=== PATIENT | female | born 1960 | race Caucasian/White ===

== ENCOUNTER → 2019-07-12 09:25 | Outpatient (BNVA) | payer OTHER, SELFPAY | PROVIDERS: Family Provider Electrodiagnostic Medicine; PCP Electrodiagnostic Medicine; Visit Provider Internal Medicine Rheumatology | DX: Z79.899 Other long term (current) drug therapy (principal); M19.90 Unspecified osteoarthritis, unspecified site; R76.8 Other specified abnormal immunological findings in serum | CPT/HCPCS: 36415; 80076; 82565; 85025; 85651; 86140; 86431; 86812 ==

== ENCOUNTER 2019-07-16 09:36 | Emergency (ER) | payer OTHER, SELFPAY ==
[2019-07-16 09:37] VITALS: BP 160/102; PULSE 84; RESP 18; TEMP 36.7; O2SAT 95; BMI 36.6
[2019-07-16 09:42] VITALS: BP 163/98; PULSE 82; RESP 17; O2SAT 98
--- NOTE | 2019-07-16 09:43 | ECG_ITS ---
Measurements Intervals Guys Rate: 70 P: 15 NC: 174 QRS: -10 QRSD: 89 T: 22 QT: 403 QTc: 435 SINUS RHYTHM POSSIBLE ANTERIOR MYOCARDIAL INFARCTION , PROBABLY OLD [30 ms Q WAVE IN V3/V4, OR R < 0.2 mV IN V4] No previous ECG available for comparison Electronically Signed On 07-16-2019 19:35:13 CDT by Lee Rogers M.D. [email or web address]
--- NOTE | 2019-07-16 09:43 | ED_ITS ---
HPI - Abdominal Pain General: Chief Complaint: Abdominal Pain Stated Complaint: RUQ PAIN Time Seen by Provider: 07/16/19 09:40 History of Present Illness: HPI narrative: 58-year-old female complaining of right upper quadrant abdominal pain. Pain is been coming and going for the last 2 weeks. She denies anything that seems to particularly worsen or relieve it she denies any nausea vomiting or diarrhea she denies any dysuria urgency or frequency denies fever cough sweats or chills. She is not any food that seem to trigger as well. She has not had any trauma to that area she has noticed that when she lays supine and improves and movement does seem to worsen just a little bit Associated Symptoms: Denies bloating, chills, coffee ground emesis, constipation, diarrhea, dysuria, fever(s), hematochezia, hematemesis, melena, nausea and vomiting Review of Systems Const: Denies: fever(s), chills, body aches, change in appetite, fatigue or malaise ENMT: Denies: throat pain, ear or mastoid pain, nasal discharge or nasal congestion Card: Denies: chest pain, edema, dyspnea on exertion or orthopnea Resp: Denies: dyspnea, productive cough or non-productive cough GI: Denies: abdominal pain, nausea, vomiting, hematemesis, coffee ground emesis, diarrhea, constipation, bloating, hematochezia or melena : Denies: flank pain, difficulty voiding, dysuria, urinary frequency or urinary urgency Skin/Breast: Denies: rash or pruritus PFS ED PFSH: Medical History Biceps tendon tear Hypertension Surgical History H/O dilation and curettage H/O hysterectomy for benign disease History of cholecystectomy Hx of total knee arthroplasty Social History Smoking and tobacco status: never smoked Physical Exam Const: COMMON NORMALS: no acute distress GENERAL APPEARANCE: cooperative and comfortable ORIENTATION/CONSCIOUSNESS: Yes awake, Yes oriented to person, Yes oriented to place and Yes oriented to time HENMT: COMMON NORMALS: normocephalic, atraumatic, hearing grossly normal bilaterally, external ears normal, EAC's normal, TM's normal bilaterally, Normal nasal mucous membranes and turbinates present, moist oral mucous membranes and oropharynx normal HEAD & SCALP: normocephalic and atraumatic NOSE: Normal nasal mucous membranes and turbinates present EXTERNAL EAR: Yes external ears normal EXTERNAL AUDITORY CANAL: EAC's normal TYMPANIC MEMBRANE: TM's normal bilaterally Eye: COMMON NORMALS: Equal, round and reactive pupils present, EOMs intact bilaterally, conjunctivae normal and no scleral icterus CONJUNCTIVA: Yes conjunctivae normal PUPIL: Yes Equal, round and reactive pupils present Neck/C-Spine: COMMON NORMALS: full ROM, no lymphadenopathy, supple and no JVD Lymph: LYMPHATIC: no lymphadenopathy noted and no lymphedema noted Resp: COMMON NORMALS: normal respiratory effort, No retractions, No use of accessory muscles and clear to auscultation bilaterally AUSCULTATION: clear to auscultation bilaterally Cardio: COMMON NORMALS: no JVD, regular rate, regular rhythm and No murmurs present (Cardio) RATE: regular rate RHYTHM: regular rhythm GI: COMMON NORMALS: Soft to palpation and No hepatosplenomegaly present AUSCULTATION: Yes normoactive bowel sounds PALPATION: Yes Soft to palpation, No Tenderness to palpation present (GI), No Guarding due to palpation present (GI) and Yes No hepatosplenomegaly present Extremity: COMMON NORMALS: normal to inspection, capillary refill normal, no clubbing, cyanosis or edema, no calf tenderness and no pedal edema Neuro: SENSORIUM/ORIENTATION: Yes oriented to person, Yes oriented to place and Yes oriented to time Skin: COMMON NORMALS: no rashes or lesions noted GENERAL SKIN EXAM: no rashes or lesions noted Course Vital Signs: Vital signs: Vital Signs Temperature 98.1 F 07/16/19 09:37 Pulse Rate 66 07/16/19 12:42 Respiratory Rate 18 07/16/19 12:42 Blood Pressure 146/76 07/16/19 12:42 Pulse Oximetry 96 07/16/19 12:42 MDM - Abdominal Pain MDM Narrative: Medical decision making narrative: Reviewed the findings with the patient we will have her use yira-gky-[id number] laxatives such as milk of magnesia or mag citrate for the relief of constipation. For the cystitis started on Cipro 500 twice daily we did give her some Rocephin here for his worsening or change symptoms return Lab Data: Labs: Lab Results 07/16/19 07/16/19 07/16/19 Range/Units 10:00 10:00 10:00 WBC 4.5 (4.0-10.0) 10^3/ uL RBC 5.25 (4.1-5.3) 10^6/u L Hgb 14.8 (11.5-15.3) g/dL Hct 45.9 (37.0-47.0) % MCV 87.4 (81-99) fL MCH 28.2 (28.0-34.0) pg MCHC 32.2 (30.0-36.0) g/dL RDW 12.8 (12.1-15.1) % Plt Count 309 (130-400) 10^3/c mm MPV 8.6 (7.4-10.4) fL Neut % (Auto) 54.8 % Lymph % (Auto) 33.6 % Pershing % (Auto) 9.1 % Eos % (Auto) 1.6 % Baso % (Auto) 0.7 % Neut # (Auto) 2.5 (1.8-7.7) 10^3/u L Lymph # (Auto) 1.5 (0.8-4.8) 10^3/u L Pershing # (Auto) 0.4 (0.2-0.9) 10^3/u L Eos # (Auto) 0.1 (0.0-0.8) 10^3/u L Baso # (Auto) 0.0 (0.0-0.1) 10^3/u L Nucleated RBC % (a uto) 0 % Nucleated RBCs # 0.0 /100WBC Sodium 138 (136-145) mmol/L Potassium 4.0 (3.5-5.1) mmol/L Chloride 98 (98-107) mmol/L Carbon Dioxide 27 (22-29) mmol/L Anion Gap 17.0 (5-19) BUN 13 (6-20) mg/dL Creatinine 0.7 (0.5-0.9) mg/dL GFR Calculation 85.9 L (90-130) mL/min Glucose 146 H (65-115) mg/dL Calculated Osmolal ity 285 (285-295) mOsm/k g Lactate 1.4 (0.5-2.2) mmol/L Calcium 10.0 (8.5-10.5) mg/dL Lipase 35 (13-60) U/L Urine Color (Yellow) Urine Appearance (CLEAR) Urine pH (5-7) Ur Specific Gravit y (1.005-1.030) Urine Protein (Negative) Urine Glucose (UA) (Normal) Urine Ketones (Negative) Urine Blood (Negative) Urine Nitrate (Negative) Urine Bilirubin (NEGATIVE) Urine Urobilinogen (Negative) mg/dL Ur Leukocyte Geovanna ase (Negative) Urine RBC (0-2) /hpf Urine WBC (0-5) /hpf Ur Squamous Epith Cells (0-5) Urine Bacteria (NONE) 07/16/19 Range/Units 10:30 WBC (4.0-10.0) 10^3/ uL RBC (4.1-5.3) 10^6/u L Hgb (11.5-15.3) g/dL Hct (37.0-47.0) % MCV (81-99) fL MCH (28.0-34.0) pg MCHC (30.0-36.0) g/dL RDW (12.1-15.1) % Plt Count (130-400) 10^3/c mm MPV (7.4-10.4) fL Neut % (Auto) % Lymph % (Auto) % Pershing % (Auto) % Eos % (Auto) % Baso % (Auto) % Neut # (Auto) (1.8-7.7) 10^3/u L Lymph # (Auto) (0.8-4.8) 10^3/u L Pershing # (Auto) (0.2-0.9) 10^3/u L Eos # (Auto) (0.0-0.8) 10^3/u L Baso # (Auto) (0.0-0.1) 10^3/u L Nucleated RBC % (a uto) % Nucleated RBCs # /100WBC Sodium (136-145) mmol/L Potassium (3.5-5.1) mmol/L Chloride (98-107) mmol/L Carbon Dioxide (22-29) mmol/L Anion Gap (5-19) BUN (6-20) mg/dL Creatinine (0.5-0.9) mg/dL GFR Calculation (90-130) mL/min Glucose (65-115) mg/dL Calculated Osmolal ity (285-295) mOsm/k g Lactate (0.5-2.2) mmol/L Calcium (8.5-10.5) mg/dL Lipase (13-60) U/L Urine Color Yellow (Yellow) Urine Appearance Cloudy (CLEAR) Urine pH 6.5 (5-7) Ur Specific Gravit y 1.010 (1.005-1.030) Urine Protein Neg (Negative) Urine Glucose (UA) Norm (Normal) Urine Ketones Negative (Negative) Urine Blood Trace H (Negative) Urine Nitrate Negative (Negative) Urine Bilirubin Neg (NEGATIVE) Urine Urobilinogen Norm (Negative) mg/dL Ur Leukocyte Geovanna ase 2+ H (Negative) Urine RBC 5-10 H (0-2) /hpf Urine WBC 40-55 H (0-5) /hpf Ur Squamous Epith Cells 0-4 H (0-5) Urine Bacteria 3+ H (NONE) Discharge Plan Discharge Patient Disposition: Home, Self-Care Clinical Impression: Cystitis, Constipation Condition: Stable Prescriptions: New Cipro 500 mg tablet 500 mg PO BID Qty: 7 RF: 0 No Action hydrocodone-acetaminophen 5-325 mg tablet 1 tab PO Q4H PRN (Reason: Pain) RF: 0 triamterene-hydrochlorothiazid 37.5-25 mg capsule 1 cap PO DAILY RF: 0 amitriptyline 25 mg tablet 25 mg PO BEDTIME PRN (Reason: Sleep) RF: 0 fluoxetine 20 mg capsule 20 mg PO DAILY RF: 0 Discharge Orders: Discharge Order (Routine); Ordered 07/16/19 Ordered By: Miguel A Temple Referrals: Ivan Callahan DO [Primary Care Provider] - Discharge Diet: Usual diet Discharge Activity: Increase activity as tolerated Discharge Date/Time: 07/16/19 12:40 Coding Level of Care Code ED Vendor Quality Supervisor for Chg Fwd Exam Comprehensive
--- NOTE | 2019-07-16 09:43 | CT_ITS ---
WS: [id number] CT ABDOMEN AND PELVIS WITH CONTRAST HISTORY: Abdominal pain for 2 weeks. Worse in the RIGHT lower quadrant. TECHNIQUE: Imaging performed of the abdomen and pelvis with IV contrast. Single phase imaging of the abdomen. Coronal and sagittal reformats are submitted. All CT scans at [facility] use at least one of these dose optimization techniques: automated exposure control; mA and/or kV adjustment per patient size (includes targeted exams where dose is matched to clinical indication); or iterativ e reconstruction. IV CONTRAST: Visipaque 320; 95 mL IV. Oral contrast: No DLP: 1604.97 mGy.cm COMPARISON: None available. Lower thorax: Benign granuloma LEFT lung base. Heart is normal size. Small hiatal hernia. Liver/biliary system: Diffuse low attenuation from hepatic steatosis. No bile duct dilatation. Normal appearance of the portal vein. Gallbladder: Prior cholecystectomy. Normal bile ducts. Pancreas: Normal. Spleen: Normal. Adrenal glands: Normal. Right kidney: Normal size RIGHT kidney. Cyst from the mid kidney, maximum diameter of 2.0 cm. Nonobst ructing calcification measuring 6 mm in the mid kidney. There is very slight dilatation of the RIGHT renal pelvis. Dilatation may be related to an extrarenal pelvis or minimal UP junction obstruction. T he ureter is normal size. No hydronephrosis. Left kidney: Cortical cyst lower pole measures 6 mm. No obstruction. Aorta: Mild atherosclerosis with no aneurysm. Lymphadenopathy: None. Free fluid: None. GI tract: Normal appendix. Mild diffuse constipation. There are numerous diverticula throughout the c olon. No acute inflammatory changes. Abdominal wall: Unremarkable abdominal wall. No hernia. Pelvis: Prior hysterectomy. Nondistended urinary bladder. No free fluid or adenopathy. Bones: Facet joint arthritis at L4-5 and L5-S1. Fusion across the disc of T11 and T12. CT/CT abdomen pelvis w con* [id number] IMPRESSION: 1. Prior cholecystectomy and hysterectomy. 2. Normal appendix. 3. Moderate hepatic steatosis. 4. No renal obstruction. 5. Constipation and diffuse diverticulosis without diverticulitis.
--- NOTE | 2019-07-16 09:44 | XRR_ITS ---
PROCEDURE INFORMATION: Exam: XR Chest, 1 View Exam date and time: 07/16/2019 9:55 AM Age: 58 years old Clinical indication: Cough and dyspnea and other: Ruq pain; Additional info: Dyspnea/cough, ruq pain TECHNIQUE: Imaging protocol: XR of the chest Views: 1 view. COMPARISON: No relevant prior studies available. FINDINGS: Lungs: No acute airspace disease. Pleural space: No pleural effusion. Heart/Mediastinum: Epicardial fat accentuates the cardiac silhouette. Bones/joints: Degenerative change. Left rotator cuff repair. XR/XR chest 1V portable [id number] IMPRESSION: No acute airspace or pleural disease.
[2019-07-16 10:07] LABS: Basophils % 0.7 %; Eosinophils # 0.1 10^3/uL (0.0-0.8); Eosinophils % 1.6 %; Hematocrit 45.9 % (37.0-47.0); Hemoglobin 14.8 g/dL (11.5-15.3); Lymphocytes # 1.5 10^3/uL (0.8-4.8); Lymphocytes % 33.6 %; Mean Corpuscular HGB Conc 32.2 g/dL (30.0-36.0); Mean Corpuscular Hemoglobin 28.2 pg (28.0-34.0); Mean Corpuscular Volume 87.4 fL (81-99); Mean Platelet Volume 8.6 fL (7.4-10.4); Monocytes # 0.4 10^3/uL (0.2-0.9); Monocytes % 9.1 %; Neutrophils # 2.5 10^3/uL (1.8-7.7); Neutrophils % 54.8 %; Nucleated Red Blood Cells % 0 %; Platelet Count 309 10^3/cmm (130-400); Red Blood Count 5.25 10^6/uL (4.1-5.3); Red Cell Distribution Width 12.8 % (12.1-15.1); White Blood Count 4.5 10^3/uL (4.0-10.0)
[2019-07-16] MEDS: ondansetron 2 mg/ML SDV 2 mL 4 MG IVP (10:11)
[2019-07-16] MEDS: diphenhydrAMINE 50 mg/mL SDV 1mL 25 MG IVP (10:12)
[2019-07-16] MEDS: hydrocortisone 100 mg/2 mL SDV IVP (10:14)
[2019-07-16] MEDS: sodium chloride 0.9% 1,000 ML 999 ML IV (10:17)
[2019-07-16] MEDS: iodixanol 320 mg/mL 100mL Btl IV (10:21)
[2019-07-16 10:26] LABS: Blood Urea Nitrogen 13 mg/dL (6-20); Carbon Dioxide 27 mmol/L (22-29); Chloride 98 mmol/L (98-107); Glomerular Filtration Rate 85.9 mL/min (90-130); Glucose 146 mg/dL (65-115); Lactate (Lactic Acid level) 1.4 mmol/L (0.5-2.2); Lipase 35 U/L (13-60); Osmolality Calculated 285 mOsm/kg (285-295); Sodium 138 mmol/L (136-145)
[2019-07-16 10:39] VITALS: BP 163/98; PULSE 74; RESP 17; O2SAT 97
[2019-07-16 10:55] LABS: Add Urine Microscopic? YES; Bilirubin Urine Neg (NEGATIVE); Blood Urine Trace (Negative); Glucose Urine UA Norm (Normal); Ketones Urine Negative (Negative); Leukocyte Esterase Urine 2+ (Negative); Nitrate Urine Negative (Negative); Protein Urine Neg (Negative); Urine Appearance Cloudy (CLEAR); Urine Color Yellow (Yellow); Urobilinogen Urine Norm (Negative); pH Urine 6.5 (5-7)
[2019-07-16 10:57] LABS: Add Urine Culture? Yes; Bacteria Urine 3+; Squamous Epithelial Cell Urine 0-4 (0-5); WBC Urine 40-55 /hpf (0-5)
[2019-07-16 11:00] VITALS: BP 132/84; PULSE 73; RESP 18; O2SAT 98
[2019-07-16] MEDS: cefTRIAXone 1,000 MG in sodium chloride 0.9% (plus) 50 ML 100 MG IV (12:04)
[2019-07-16 12:42] VITALS: BP 146/76; PULSE 66; RESP 18; O2SAT 96
== END 2019-07-16 12:40 | disposition home or self-care (01) ==
PROVIDERS: Emergency Provider Family Medicine; Family Provider Electrodiagnostic Medicine; PCP Electrodiagnostic Medicine
DX: N30.90 Cystitis, unspecified without hematuria (principal); K59.00 Constipation, unspecified; I10 Essential (primary) hypertension
CPT/HCPCS: 12345; 36415; 71045; 74177; 80048; 81001; 83605; 83690; 85025; 87040; 87077; 87086; 87186; 93005; 96360; 96365; 96375; 99283; 99284; J0696; J1200; J1720; J2405; J7030; Q9967

== ENCOUNTER → 2019-07-19 12:29 | Outpatient (BNVA) | payer OTHER, SELFPAY | PROVIDERS: Family Provider Electrodiagnostic Medicine; PCP Electrodiagnostic Medicine; Visit Provider Internal Medicine Rheumatology | DX: Z79.899 Other long term (current) drug therapy (principal) | CPT/HCPCS: 36415; 84439; 84443 ==

== ENCOUNTER 2019-07-30 10:39 | Outpatient (CLI) | payer OTHER, SELFPAY ==
--- NOTE | 2019-07-30 10:45 | XR_ITS ---
WS: [id number] HAND LEFT TECHNIQUE: 3 views of the left hand CLINICAL INFORMATION: inflammatory arthritis COMPARISON: None. FINDINGS: Normal metacarpals. Normal MCP joint. Metacarpal heads are normal in appearance. Normal PIP and DIP j oints. No evidence of acute fracture or dislocation. Well-corticated chronic ulnar solid process avul danie. Radiocarpal joint: Normal. Carpal bones: Normal. XR/XR hand LT min 3V* [id number] IMPRESSION: Normal left hand.
--- NOTE | 2019-07-30 10:45 | XR_ITS ---
WS: [id number] FOOT RIGHT TECHNIQUE: 3 views of the right foot CLINICAL INFORMATION: inflammatory arthritis COMPARISON: None. FINDINGS: No evidence of acute fracture or dislocation. Normal tarsal metatarsal alignment. Normal calcaneus. N ormal visualized talar dome. Plantar calcaneal spurring. No significant erosive changes. IMPRESSION: No significant erosive changes.
--- NOTE | 2019-07-30 10:45 | XR_ITS ---
WS: [id number] HAND RIGHT TECHNIQUE: 3 views of the right hand CLINICAL INFORMATION: inflammatory arthritis COMPARISON: None. FINDINGS: Normal metacarpals. Normal MCP joint. Metacarpal heads are normal in appearance. Normal PIP and DIP j oints. No evidence of acute fracture or dislocation. Radiocarpal joint: Normal. Carpal bones: Normal. XR/XR hand RT min 3V* [id number] IMPRESSION: Normal right hand.
--- NOTE | 2019-07-30 10:45 | XR_ITS ---
WS: [id number] FOOT LEFT TECHNIQUE: 3 views of the left foot CLINICAL INFORMATION: inflammatory arthritis COMPARISON: None. FINDINGS: No evidence of acute fracture or dislocation. Normal tarsal metatarsal alignment. Normal calcaneus. N ormal visualized talar dome. No significant erosions. Screw fixation distal tibial plafond. Hypertrop hic spurring anterior tibial plafond. Plantar calcaneal spurring. IMPRESSION: No erosive changes.
== END 2019-07-30 10:40 | disposition home or self-care (01) ==
LOC: RADWPI 10:44
PROVIDERS: Family Provider Electrodiagnostic Medicine; PCP Electrodiagnostic Medicine; Visit Provider Internal Medicine Rheumatology
DX: M19.90 Unspecified osteoarthritis, unspecified site (principal)
CPT/HCPCS: 73130; 73630

== ENCOUNTER → 2019-09-16 11:44 | Outpatient (BNVA) | payer OTHER, SELFPAY | PROVIDERS: Family Provider Electrodiagnostic Medicine; PCP Electrodiagnostic Medicine; Visit Provider Internal Medicine Rheumatology | DX: M25.50 Pain in unspecified joint (principal); R76.8 Other specified abnormal immunological findings in serum; Z79.899 Other long term (current) drug therapy | CPT/HCPCS: 99204 ==

== ENCOUNTER → 2019-10-21 13:51 | Outpatient (BNVA) | payer OTHER, SELFPAY | PROVIDERS: Family Provider Electrodiagnostic Medicine; PCP Electrodiagnostic Medicine; Visit Provider Internal Medicine Rheumatology | DX: N39.0 Urinary tract infection, site not specified (principal) | CPT/HCPCS: 81001; 87086 ==

== ENCOUNTER → 2019-12-18 10:45 | Outpatient (BNVA) | payer OTHER, SELFPAY | PROVIDERS: Family Provider Electrodiagnostic Medicine; PCP Electrodiagnostic Medicine; Visit Provider Internal Medicine Rheumatology | DX: N39.0 Urinary tract infection, site not specified (principal); Z79.899 Other long term (current) drug therapy | CPT/HCPCS: 36415; 80076; 82565; 85025; 85651; 86140; 87077; 87086; 87186 ==

== ENCOUNTER → 2020-02-24 12:45 | Outpatient (BNVA) | payer OTHER, SELFPAY | PROVIDERS: Family Provider Electrodiagnostic Medicine; PCP Electrodiagnostic Medicine; Visit Provider Internal Medicine Rheumatology | DX: N39.0 Urinary tract infection, site not specified (principal) | CPT/HCPCS: 81001; 87077; 87086; 87186 ==

== ENCOUNTER → 2020-03-09 15:59 | Outpatient (BNVA) | payer OTHER, SELFPAY | PROVIDERS: Family Provider Electrodiagnostic Medicine; PCP Electrodiagnostic Medicine; Visit Provider Nurse Practitioner Family | DX: N39.0 Urinary tract infection, site not specified (principal) | CPT/HCPCS: 81003; 87077; 87086; 87184 ==

== ENCOUNTER 2020-04-08 14:20 | Outpatient (CLI) | payer OTHER, SELFPAY ==
--- NOTE | 2020-04-08 15:15 | XR_ITS ---
WS: [id number] KUB, AP view, 04/08/2020 Clinical Data: RECURRENT UTI Comparison: None. Findings: No abnormal intraabdominal masses are seen. There is no dilatated small bowel or evidence of obstruc tion. There is a slight dextroscoliosis of the lumbar spine. There is a 0.7 cm calcification in the central portion of the right kidney which could represent a ri ght renal calculus. Stool obscures much detail over both kidneys. There are phleboliths in the true p mariel. There are clips in the right upper quadrant from a cholecystectomy. XR/XR KUB [id number] Impression: 1. Possible right renal calculus measuring 0.7 cm. 2. Large amount of fecal material. Detail over both kidneys. 3. Numerous phleboliths in the pelvis.
== END 2020-04-08 14:21 | disposition home or self-care (01) ==
PROVIDERS: PCP Electrodiagnostic Medicine; Visit Provider Urology
DX: N39.0 Urinary tract infection, site not specified (principal); I87.8 Other specified disorders of veins
CPT/HCPCS: 74018; 81003

== ENCOUNTER → 2020-05-05 15:54 | Outpatient (BNVA) | payer OTHER, SELFPAY | PROVIDERS: PCP Electrodiagnostic Medicine; Visit Provider Internal Medicine Rheumatology | DX: M19.90 Unspecified osteoarthritis, unspecified site (principal) | CPT/HCPCS: 36415; 80076; 82565; 85025; 86140 ==

== ENCOUNTER 2020-05-31 20:05 | Emergency (ER) | payer OTHER, SELFPAY ==
[2020-05-31 20:10] VITALS: BP 144/78; PULSE 96; RESP 17; TEMP 36.7; O2SAT 98; BMI 38.4
[2020-05-31 21:29] VITALS: BP 185/107; PULSE 88; RESP 17; O2SAT 97
--- NOTE | 2020-05-31 21:36 | XR_ITS ---
WS: [id number] Exam: XR femur LT min 2V* [id number] Date/Time of Exam: 05/31/2020 9:36 PM Reason For Exam: pain No fractures, soft tissue swelling, or calcifications are noted. The femur is in adequate position. No periosteal reaction is noted. XR/XR femur LT min 2V* [id number] IMPRESSION: Negative left femur.
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
[2020-05-31] MEDS: HYDROcodone-acetaminophen 7.5-325 mg Tablet 1 TAB PO (21:51)
[2020-05-31 21:57] VITALS: BP 159/62; PULSE 94; RESP 22; O2SAT 98
[2020-05-31 22:38] VITALS: BP 128/81; PULSE 83; RESP 18; O2SAT 98
[2020-05-31 22:39] VITALS: BP 128/81; PULSE 83; RESP 18; O2SAT 98
== END 2020-05-31 22:40 | disposition home or self-care (01) ==
PROVIDERS: Emergency Provider Nurse Practitioner Family; PCP Electrodiagnostic Medicine
DX: S76.312A Strain of muscle, fascia and tendon of the posterior muscle group at thigh level, left thigh, initial encounter (principal); I10 Essential (primary) hypertension; Z96.659 Presence of unspecified artificial knee joint; X58.XXXA Exposure to other specified factors, initial encounter
CPT/HCPCS: 73552; 99283; E0114

== ENCOUNTER 2020-07-16 20:00 | Outpatient (CLI) | payer OTHER, SELFPAY | END 2020-07-16 20:01 | disposition home or self-care (01) | LOC: SLEEP 07-17 09:16 | PROVIDERS: PCP Electrodiagnostic Medicine; Visit Provider Anesthesiology Pain Medicine | DX: G47.10 Hypersomnia, unspecified (principal); R06.83 Snoring; R53.83 Other fatigue; G47.33 Obstructive sleep apnea (adult) (pediatric); N30.20 Other chronic cystitis without hematuria | CPT/HCPCS: 81003; 87077; 87086; 87184; 95811 ==

== ENCOUNTER 2020-08-17 07:32 | Outpatient (CLI) | payer OTHER, SELFPAY ==
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
== END 2020-08-17 07:33 | disposition home or self-care (01) ==
PROVIDERS: PCP Electrodiagnostic Medicine; Visit Provider Anesthesiology Pain Medicine
DX: M25.552 Pain in left hip (principal); M47.816 Spondylosis without myelopathy or radiculopathy, lumbar region
CPT/HCPCS: 72120; 73502

== ENCOUNTER 2020-08-27 14:53 | Outpatient (CLI) | payer OTHER, SELFPAY ==
--- NOTE | 2020-08-27 15:45 | XR_ITS ---
WS: [id number] Thoracic spine, 3 views, 08/27/2020 Clinical Data: M54.9 - Dorsalgia, unspecified Comparison: None. Findings: No compression fractures are seen. The disc heights are normal. There is osteoarthritic spurring of all the thoracic vertebral bodies. The paravertebral regions are normal. There are clips in the right upper quadrant from a cholecystectomy. There is an orthopedic an chor in the humeral head. XR/XR thoracic spine 2V [id number] Impression: Severe osteoarthritis of the thoracic vertebral bodies.
--- NOTE | 2020-08-27 16:15 | XR_ITS ---
WS: [id number] Bone mineral density performed on a [employer], 08/27/2020 Clinical data: M81.0 - Age-related osteoporosis without current patholog... Findings: The first 4 lumbar vertebral bodies demonstrated the bone mineral density of 1.406 g/sq cm for a mary g adult T score of 1.7. Measurement of the left hip reveals a bone mineral density of 1.110 g/cm2 with a young adult T score of 0.8. Measurement of the right hip reveals the bone mineral density of 1.083 g/cm2 for young adult T score of 0.6. XR/XR DEXA axial skeleton* [id number] Impression: Normal bone mineral density of the lumbar spine and both hips.
== END 2020-08-27 14:54 | disposition home or self-care (01) ==
PROVIDERS: PCP Electrodiagnostic Medicine; Visit Provider Internal Medicine Rheumatology
DX: M54.9 Dorsalgia, unspecified (principal); M81.0 Age-related osteoporosis without current pathological fracture; Z13.820 Encounter for screening for osteoporosis
CPT/HCPCS: 72070; 77080

== ENCOUNTER → 2020-09-23 15:11 | Outpatient (BNVA) | payer OTHER, SELFPAY | PROVIDERS: PCP Electrodiagnostic Medicine; Visit Provider Internal Medicine Rheumatology | DX: M19.90 Unspecified osteoarthritis, unspecified site (principal); R76.8 Other specified abnormal immunological findings in serum; Z71.89 Other specified counseling; Z79.899 Other long term (current) drug therapy | CPT/HCPCS: 36415; 80076; 82565; 85025; 86140 ==

== ENCOUNTER 2020-12-15 08:24 | Outpatient (CLI) | payer OTHER, SELFPAY ==
--- NOTE | 2020-12-15 08:34 | MM_ITS ---
WS: [id number] BILATERAL DIGITAL SCREENING MAMMOGRAPHY WITH CAD CLINICAL INFORMATION: SCREENING HISTORY: Screening mammogram. No current complaints. COMPARISON: TECHNIQUE: Bilateral CC and MLO views. FINDINGS: Scattered fibroglandular densities bilaterally. Incidental punctate and lucent centered calcification s. No suspicious focal mass, asymmetry, calcifications, or architectural distortion. No evidence of m alignancy. MM/[place] [id number] IMPRESSION: BI-RADS: 2-Benign FOLLOW UP: 1 Year Follow-up Recommend return to annual screening mammography.
== END 2020-12-15 08:25 | disposition home or self-care (01) ==
LOC: RADSHAW 08:28
PROVIDERS: PCP Electrodiagnostic Medicine; Visit Provider Electrodiagnostic Medicine
DX: Z12.31 Encounter for screening mammogram for malignant neoplasm of breast (principal)
CPT/HCPCS: 77067

== ENCOUNTER 2020-12-15 18:52 | Emergency (ER) | payer OTHER, SELFPAY ==
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
[2020-12-15 19:00] VITALS: BP 133/81; PULSE 101; RESP 18; TEMP 37; O2SAT 96; BMI 37.8
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
--- NOTE | 2020-12-15 20:33 | PC.NURSE ---
applied posterior short leg to right ankle CMS intact post splinting.
--- NOTE | 2020-12-16 08:57 | DCPLANNER ---
manager orange had message to schedule a follow up appointment for patient with ortho. manager orange called the ortho clinic, spoke with Bridgette, gave clinic patients information. manager orange was told that patients information would be printed and reviewed. Clinic will call patient with appointment information.
--- NOTE | 2020-12-17 07:38 | DCPLANNER ---
Patient has a follow up appointment scheduled for , December 17, [address] at 9:[address] Wetzel at ortho. Clinic will call patient with appointment information.
--- NOTE | 2021-02-28 16:13 | DCPLANNER ---
Patient had a follow up appointment scheduled with ortho - patient did attend appointment.
== END 2020-12-15 20:36 | disposition home or self-care (01) ==
PROVIDERS: Emergency Provider Nurse Practitioner Family; PCP Electrodiagnostic Medicine
DX: S92.351A Displaced fracture of fifth metatarsal bone, right foot, initial encounter for closed fracture (principal); S60.221A Contusion of right hand, initial encounter; Z79.891 Long term (current) use of opiate analgesic; V89.2XXA Person injured in unspecified motor-vehicle accident, traffic, initial encounter
CPT/HCPCS: 29515; 73120; 73610; 73630; 99283

== ENCOUNTER → 2021-01-25 15:48 | Outpatient (BNVA) | payer OTHER, SELFPAY | PROVIDERS: PCP Electrodiagnostic Medicine; Visit Provider Specialist | DX: S92.351D Displaced fracture of fifth metatarsal bone, right foot, subsequent encounter for fracture with routine healing (principal); X58.XXXD Exposure to other specified factors, subsequent encounter | CPT/HCPCS: 73630 ==

== ENCOUNTER 2022-03-23 16:55 | Outpatient (CLI) | payer OTHER, SELFPAY ==
--- NOTE | 2022-03-23 16:59 | XR_ITS ---
WS: [id number] Lateral views of cervical spine in the flexion, extension and neutral positions. 03/23/2022 Clinical Data: M05.79 - Rheumatoid arthritis with rheumatoid factor of m... Comparison: None. Findings: There are bridging osteophytes from C3 to C7. There is disc space narrowing and almost total oblitera tion at C6-C7. No compression fractures are seen. No prevertebral swelling is seen. On flexion and ex tension there is no limitation of motion or subluxation. XR/XR cervical spine fl/ex [id number] Impression: 1. Bridging osteophytes from C3 through C7 with disc narrowing at C6-C7. 2. Negative for limitation of motion or subluxation on flexion or extension.
== END 2022-03-23 16:56 | disposition home or self-care (01) ==
LOC: RAD 16:57
PROVIDERS: PCP Electrodiagnostic Medicine; Visit Provider Internal Medicine Rheumatology
DX: M05.79 Rheumatoid arthritis with rheumatoid factor of multiple sites without organ or systems involvement (principal); M25.78 Osteophyte, vertebrae
CPT/HCPCS: 72040

== ENCOUNTER 2022-04-25 11:32 | Outpatient (CLI) | payer OTHER, SELFPAY ==
--- NOTE | 2022-04-25 11:45 | MR_ITS ---
WS: [id number] MRI CERVICAL SPINE NONCONTRAST TECHNIQUE: Sagittal T1, T2 and STIR imaging. Axial T2, gradient, and fiesta imaging. CLINICAL INFORMATION: M54.2 - Cervicalgia COMPARISON: None. FINDINGS: Straightening of the normal cervical lordosis. Interbody bony fusion C6-C7. Cord signal is normal. C2-C3: Normal. C3-C4: Mild facet arthropathy. Spinal canal and foramen are patent. C4-C5: Mild disc bulging with osteophytic ridging. Mild facet arthropathy. Mild LEFT and no RIGHT for aminal narrowing. C5-C6: Mild disc osteophytic ridging. Mild LEFT and no significant RIGHT foraminal narrowing. Mild fa cet arthropathy. Spinal canal is patent. C6-C7: Interbody bony fusion. Osteophytic ridging. Mild RIGHT and no significant LEFT foraminal narro wing. Mild facet arthropathy. C7-T1: Disc osteophyte complex with endplate ridging. Mild LEFT and no significant RIGHT foraminal na rrowing. Spinal canal is patent. T1-T2: Slight anterolisthesis T1 on T2. Mild disc bulging with osteophytic ridging. Moderate LEFT and no significant RIGHT foraminal narrowing. Mild facet arthropathy. Visualized brain stem structures: Normal. Prevertebral soft tissues: Normal. MR/MR cervical spin wo con* [id number] IMPRESSION: 1. Straightening of the normal cervical lordosis. Slight cord signal is normal . 2. Interbody bony fusion C6-C7. 3. Mild multilevel bony foraminal narrowing worse at LEFT C4-C5, LEFT C5-C6, R IGHT C6-C7, LEFT C7-T1 and moderate LEFT T1-T2.
== END 2022-04-25 11:33 | disposition home or self-care (01) ==
PROVIDERS: PCP Electrodiagnostic Medicine; Visit Provider Internal Medicine Rheumatology
DX: M54.2 Cervicalgia (principal); Z98.1 Arthrodesis status; M48.03 Spinal stenosis, cervicothoracic region
CPT/HCPCS: 72141

== ENCOUNTER 2023-10-03 18:53 | Emergency (ER) | payer OTHER, SELFPAY ==
[2023-10-03 18:55] VITALS: PULSE 116; RESP 18; TEMP 37.4; O2SAT 96; BMI 30.2
[2023-10-03 19:27] LABS: Charge for UA Resulting for Rev
[2023-10-03 19:30] LABS: Bilirubin Urine 1+ (Negative); Blood Urine 1+ (Negative); Glucose Urine UA Trace (Normal); Ketones Urine Trace (Negative); Leukocyte Esterase Urine 2+ (Negative); Nitrate Urine Positive (Negative); Protein Urine 2+ (Negative); Specific Gravity, Urine 1.021 (1.005-1.030); Urine Appearance Turbid (CLEAR); Urine Color Dark Yellow (Yellow); pH Urine 5.5 (5-7)
[2023-10-03 19:35] LABS: Bacteria Urine 4+ /hpf; Hyaline Casts Urine 15.71 /lpf; RBC Urine 0-2 /hpf (0-2); Squamous Epithelial Cell Urine 21-50 /hpf (0-5); WBC Urine >100 /hpf (0-5)
[2023-10-03 19:44] LABS: Influenza A by IFA negative (Negative); Influenza B by IFA negative (Negative)
[2023-10-03 19:45] LABS: SARS Covid-2 Antigen negative (Negative)
[2023-10-03 19:46] LABS: Basophils % 0.2 %; Eosinophils % 0.1 %; Hematocrit 38.2 % (36-47); Lymphocytes # 0.7 10^3/uL (0.8-4.8); Lymphocytes % 5.4 %; Mean Corpuscular HGB Conc 33.5 g/dL (30-55); Mean Corpuscular Hemoglobin 29.1 pg (27-33); Mean Corpuscular Volume 86.8 fl (85-98); Mean Platelet Volume 8.9 fL (7.4-10.4); Monocytes # 0.8 10^3/uL (0.2-0.9); Neutrophils # 10.41 10^3/uL (1.8-7.7); Neutrophils % 86.8 %; Nucleated Red Blood Cells % 0 %; Platelet Count 193 10^3/cmm (157-399); Red Cell Distribution Width 12.8 % (12.1-15.1); White Blood Count 11.99 10^3/uL (3.29-11.43)
[2023-10-03 19:53] LABS: Add Urine Culture? Yes
[2023-10-03 19:59] LABS: Alanine Aminotransferase 44 U/L (0-33); Albumin Level 3.6 g/dL (3.5-5.2); Alkaline Phosphatase 102 U/L (35-105); Anion Gap 16.8 (5-19); Aspartate Amino Transferase 30 U/L (0-32); Blood Urea Nitrogen 12 mg/dL (8-23); Calcium 8.6 mg/dL (8.5-10.5); Carbon Dioxide 27 mmol/L (22-29); Chloride 96 mmol/L (98-107); Creatinine Clr Calc Pharmacy 77.3749; Globulin 3.6 g/dL (1.3-4.6); Glomerular Filtration Rate 72.7 mL/min (90-130); Glucose 132 mg/dL (65-115); Osmolality Calculated 286 mOsm/kg (285-295); Sodium 137 mmol/L (136-145); Total Bilirubin 0.7 mg/dL (0.15-1.2); Total Protein 7.2 g/dL (6.6-8.7)
[2023-10-03 20:18] LABS: Potassium 2.8 mmol/L (3.5-5.1)
--- NOTE | 2023-10-03 20:21 | ED_ITS ---
HPI - Fever 2 General: Chief Complaint: Fever Stated Complaint: fever Time Seen by Provider: 10/03/23 19:06 History of Present Illness: This patient is a 62-year-old white female who presents to the emergency department with fever. She states this started 2 days ago. It has been as high as 103 degrees. She does have a mild right occipital headache. Denies having any cough or congestion. No nausea, vomiting or diarrhea. No dysuria. No rashes. Related Data Home Medications Medication Instructions Recorded Confirmed hydrocodone 5 mg-acetaminophen 325 1 tab PO Q4H PRN Pain 07/16/19 05/18/23 mg tablet triamterene 37.5 1 cap PO DAILY 07/16/19 05/18/23 mg-hydrochlorothiazide 25 mg capsule amitriptyline 75 mg tablet mg PO 02/14/23 05/18/23 Previous Rx's Medication Instructions Recorded hydroxychloroquine 200 mg tablet 200 mg PO BID Inflammatory 07/14/22 Arthritis #180 tabs folic acid 1 mg tablet 1 mg PO TID #270 tabs 08/10/22 diclofenac sodium 1 % topical gel 4 g topical QID #200 grams 02/22/23 pilocarpine HCl 5 mg tablet 5 mg PO TID #90 tabs 02/22/23 prednisone 10 mg tablet 10 mg PO DAILY PRN for flares #60 03/30/23 tabs semaglutide 2 mg/dose (8 mg/3 mL) 2 mg (0.75 mL) SUBCUT Q7D #3 mL 05/18/23 subcutaneous pen injector (Ozempic) methocarbamol 750 mg tablet 750 mg PO Q8H PRN muscled spasms, 07/24/23 DISH #30 tabs pantoprazole 40 mg tablet,delayed See Rx Instructions PO DAILY #90 08/07/23 release tabs pregabalin 100 mg capsule (Lyrica) 100 mg PO BID #180 caps 08/08/23 ondansetron HCl 4 mg tablet 4 mg PO Q8H PRN nausea and 09/12/23 vomiting #30 tabs cefuroxime axetil 250 mg tablet 250 mg PO BID 10 days #20 tabs 10/03/23 potassium chloride 20 mEq 20 meq PO DAILY #10 tabs 10/03/23 tablet,extended release Allergies Allergy/AdvReac Type Severity Reaction Status Date / Time escitalopram [From Lexapro] Allergy ADR-Migrain Verified 10/03/23 19:04 e Iodine and Iodide Containing Allergy ALGY-Anaphy Verified 10/03/23 19:04 Produc laxis nitrofurantoin AdvReac Intermediate ADR-Nausea Verified 10/03/23 19:04 [From Macrobid] leflunomide AdvReac ADR-Diarrhe Verified 10/03/23 19:04 a Review of Systems 2 General: Reports: 10 or more systems reviewed and unremarkable except in HPI and below Const: Reports: fever(s) PFSH ED 2 PFSH: Medical History Chronic cystitis Recurrent UTI UTI (urinary tract infection) Immunization counseling High risk medication use History of degenerative disc disease Centromere antibody positive Positive JENARO (antinuclear antibody) GERD (gastroesophageal reflux disease) Inflammatory arthritis Biceps tendon tear Hypertension Surgical History History of arthroscopic surgery of shoulder B/L scopes H/O dilation and curettage Hx of total knee arthroplasty H/O hysterectomy for benign disease History of cholecystectomy Family History Father , at 72 Cancer lung Mother , at age 62 COPD (chronic obstructive pulmonary disease) Other Diabetes Hyperlipidemia Hypertension Lung disease Rheumatoid arthritis Denies family history of Lupus CAD (coronary artery disease) Stroke Social History Smoking and tobacco/nicotine status: never used tobacco/nicotine Alcohol intake: current Alcohol intake frequency: holidays/special occasions only Substance/Drug Use: never Marital status: Current occupational status: employed Physical Exam 2 Const: COMMON NORMALS: no acute distress, patient oriented x3 and no limitations GENERAL APPEARANCE: cooperative and comfortable HENMT: COMMON NORMALS: normocephalic, atraumatic, Normal nasal mucous membranes and turbinates present, moist oral mucous membranes and oropharynx normal HEAD & SCALP: normal to inspection, normocephalic and atraumatic F MARICARMEN & SINUS: normal facial exam NOSE: Normal nasal mucous membranes and turbinates present Eye: COMMON NORMALS: Equal, round and reactive pupils present, EOMs intact bilaterally and conjunctivae normal GENERAL EYE: appearance normal, both eyes and all related structures CONJUNCTIVA: Yes conjunctivae normal PUPIL: Yes Equal, round and reactive pupils present Neck/C-Spine: COMMON NORMALS: supple and no JVD Chest: COMMONS NORMALS: normal inspection of the chest Resp: COMMON NORMALS: normal respiratory effort and clear to auscultation bilaterally AUSCULTATION: clear to auscultation bilaterally Cardio: COMMON NORMALS: no JVD, regular rate, regular rhythm, No gallops present (Cardio), No murmurs present (Cardio) and No rub (Cardio) RATE: r egular rate RHYTHM: regular rhythm GI: COMMON NORMALS: Normal to inspection, nondistended, normoactive bowel sounds present, Soft to palpation and non-tender AUSCULTATION: Yes normoactive bowel sounds PALPATION: Yes Soft to palpation : COMMON NORMALS: Yes no CVA tenderness BLADDER/KIDNEY EXAM: Yes no CVA tenderness Back/Pelvis: COMMON NORMALS: no CVA tenderness and thoracic and lumbar spine normal to inspection Extremity: COMMON NORMALS: normal to inspection Neuro: COMMON NORMALS: patient oriented x3 and CN's II-XII intact bilaterally Psych: COMMON NORMALS: mental status grossly normal, Normal thought process present and cooperative THOUGHT PROCESS: Normal thought process present Skin: COMMON NORMALS: no rashes or lesions noted, turgor normal and no jaundice GENERAL SKIN EXAM: no rashes or lesions noted and turgor normal Course 2 Vital Signs: Vital signs: Vital Signs Temperature 99.3 F 10/03/23 18:55 Pulse Rate 116 H 10/03/23 18:55 Respiratory Rate 18 10/03/23 18:55 Pulse Oximetry 96 10/03/23 18:55 Oxygen Delivery Me thod Room Air 10/03/23 18:55 MDM - Fever Medical Decision Making CBC revealed a white blood cell count of 12.0. CMP revealed a potassium of 2.6. Urinalysis is consistent with a urinary tract infection. Influenza and COVID- negative. Patient was given 1 g of Rocephin IM. I did place her on Ceftin for 10 days. Also placed her on 10 days worth of potassium chloride tablets 20 mg/day. Follow-up with her primary care physician after finishing these medications for recheck. She was discharged in stable condition. Lab Data 10/03/23 19:37 10/03/23 19:37 Laboratory Results WBC 11.99 10^3/uL (3.29-11.43) H 10/03/23 19:37 RBC 4.40 10^6/uL (3.85-5.65) 10/03/23 19:37 Hgb 12.80 g/dL (11.27-16.99) 10/03/23 19:37 Hct 38.2 % (36-47) 10/03/23 19:37 MCV 86.8 fl (85-98) 10/03/23 19:37 MCH 29.1 pg (27-33) 10/03/23 19:37 MCHC 33.5 g/dL (30-55) 10/03/23 19:37 RDW 12.8 % (12.1-15.1) 10/03/23 19:37 Plt Count 193 10^3/cmm (157-399) 10/03/23 19:37 MPV 8.9 fL (7.4-10.4) 10/03/23 19:37 Neut % (Auto) 86.8 % 10/03/23 19:37 Lymph % (Auto) 5.4 % 10/03/23 19:37 [place] % (Auto) 7.0 % 10/03/23 19:37 Eos % (Auto) 0.1 % 10/03/23 19:37 Baso % (Auto) 0.2 % 10/03/23 19:37 Neut # (Auto) 10.41 10^3/uL (1.8-7.7) H 10/03/23 19:37 Lymph # (Auto) 0.7 10^3/uL (0.8-4.8) L 10/03/23 19:37 [place] # (Auto) 0.8 10^3/uL (0.2-0.9) 10/03/23 19:37 Eos # (Auto) 0.0 10^3/uL (0.0-0.8) 10/03/23 19:37 Baso # (Auto) 0.0 10^3/uL (0.0-0.1) 10/03/23 19:37 Nucleated RBC % (auto) 0 % 10/03/23 19:37 Nucleated RBCs # 0.0 /100WBC 10/03/23 19:37 Sodium 137 mmol/L (136-145) 10/03/23 19:37 Potassium 2.8 mmol/L (3.5-5.1) L* 10/03/23 19:37 Chloride 96 mmol/L (98-107) L 10/03/23 19:37 Carbon Dioxide 27 mmol/L (22-29) 10/03/23 19:37 Anion Gap 16.8 (5-19) 10/03/23 19:37 BUN 12 mg/dL (8-23) 10/03/23 19:37 Creatinine 0.8 mg/dL (0.5-0.9) 10/03/23 19:37 GFR Calculation 72.7 mL/min (90-130) L 10/03/23 19:37 Glucose 132 mg/dL (65-115) H 10/03/23 19:37 Calculated Osmolality 286 mOsm/kg (285-295) 10/03/23 19:37 Calcium 8.6 mg/dL (8.5-10.5) 10/03/23 19:37 Total Bilirubin 0.7 mg/dL (0.15-1.2) 10/03/23 19:37 AST 30 U/L (0-32) 10/03/23 19:37 ALT 44 U/L (0-33) H 10/03/23 19:37 Alkaline Phosphatase 102 U/L (35-105) 10/03/23 19:37 Total Protein 7.2 g/dL (6.6-8.7) 10/03/23 19:37 Albumin 3.6 g/dL (3.5-5.2) 10/03/23 19:37 Globulin 3.6 g/dL (1.3-4.6) 10/03/23 19:37 Urine Color Dark yellow (Yellow) A 10/03/23 19:20 Urine Appearance Turbid (CLEAR) A 10/03/23 19:20 Urine pH 5.5 (5-7) 10/03/23 19:20 Ur Specific [place] 1.021 (1.005-1.030) 10/03/23 19:20 Urine Protein 2+ (Negative) A 10/03/23 19:20 Urine Glucose (UA) Trace (Normal) H 10/03/23 19:20 Urine Ketones Trace (Negative) 10/03/23 19:20 Urine Blood 1+ (Negative) A 10/03/23 19:20 Urine Nitrate Positive (Negative) A 10/03/23 19:20 Urine Bilirubin 1+ (Negative) H 10/03/23 19:20 Urine Urobilinogen 2.0 mg/dL (Negative) H 10/03/23 19:20 Ur Leukocyte Esterase 2+ (Negative) A 10/03/23 19:20 Urine RBC 0-2 /hpf (0-2) 10/03/23 19:20 Urine WBC >100 /hpf (0-5) H 10/03/23 19:20 Ur Squamous Epith Cells 21-50 /hpf (0-5) 10/03/23 19:20 Amorphous Sediment Not Reportable 10/03/23 19:20 Urine Bacteria 4+ /hpf (NONE) H 10/03/23 19:20 Hyaline Casts 15.71 /lpf 10/03/23 19:20 Influenza Type A Ag negative (Negative) 10/03/23 19:14 Influenza Type B Ag negative (Negative) 10/03/23 19:14 SARS-CoV-2 Ag (Rapid) negative (Negative) 10/03/23 19:14 No radiology studies performed this visit Discharge Plan Discharge Patient Disposition: Home Clinical Impression: UTI (urinary tract infection) Qualifiers: Urinary tract infection type: site unspecified Hematuria presence: without hematuria Qualified Code(s): N39.0 - Urinary tract infection, site not specified Condition: Stable Prescriptions: New cefuroxime axetil 250 mg tablet 250 mg PO BID 10 Days Qty: 20 0RF potassium chloride 20 mEq tablet extended release 20 meq PO DAILY Qty: 10 0RF No Action prednisone 10 mg tablet 10 mg PO DAILY PRN (Reason: for flares) Qty: 60 3RF amitriptyline 75 mg tablet PO Ozempic 2 mg/dose (8 mg/3 mL) pen injector 2 mg SUBCUT Q7D Qty: 3 5RF hydroxychloroquine 200 mg tablet 200 mg PO BID Qty: 180 1RF Hold Instructions: Doctor's Order folic acid 1 mg tablet 1 mg PO TID Qty: 270 1RF diclofenac sodium 1 % gel 4 g TOPICAL QID Qty: 200 2RF Rx Instructions: apply to single knee, ankle, foot; for foot includes sole/toes/top of foot pilocarpine HCl 5 mg tablet 5 mg PO TID Qty: 90 3RF methocarbamol 750 mg tablet 750 mg PO Q8H PRN (Reason: muscled spasms, DISH) Qty: 30 1RF pantoprazole 40 mg tablet,delayed release (DR/EC) See Rx Instructions PO DAILY Qty: 90 3RF Rx Instructions: take in AM 30 minutes before meal PO daily; pregabalin [Lyrica] 100 mg capsule 100 mg PO BID Qty: 180 1RF ondansetron HCl 4 mg tablet 4 mg PO Q8H PRN (Reason: nausea and vomiting) Qty: 30 1RF hydrocodone-acetaminophen 5-325 mg tablet 1 tab PO Q4H PRN (Reason: Pain) triamterene-hydrochlorothiazid 37.5-25 mg capsule 1 cap PO DAILY Discharge Orders: Discharge ED (Routine); Ordered 10/03/23 Ordered By: Magan Sapp Referrals: Ivan Callahan DO [Primary Care Provider] - Coding Level of Care Code ED Pasta Maker for Natasha Barillas
[2023-10-03] MEDS: cefTRIAXone 1,000 MG in water for injection-sterile 2.1 ML 2.1 MG IM (20:25)
[2023-10-03 20:47] VITALS: PULSE 68; O2SAT 98
== END 2023-10-03 20:48 | disposition home or self-care (01) ==
PROVIDERS: Emergency Provider Emergency Medicine; PCP Electrodiagnostic Medicine
DX: N39.0 Urinary tract infection, site not specified (principal); Z79.85 Long-term (current) use of injectable non-insulin antidiabetic drugs; Z11.52 Encounter for screening for COVID-19; I10 Essential (primary) hypertension; Z87.440 Personal history of urinary (tract) infections
CPT/HCPCS: 36415; 80053; 81003; 81015; 85025; 87086; 87426; 87804; 96372; 99284; J0696